=== PATIENT | female | born 1940 | race Caucasian/White ===

== ENCOUNTER 2019-02-19 12:23 | Outpatient (CLI) | payer MEDICARE | END 2019-02-19 23:59 | disposition home or self-care (01) | LOC: CFH 12:23 → EDSTATUS 13:00 → CFH 23:59 | PROVIDERS: ATTEND Internal Medicine Cardiovascular Disease | DX: I08.0 Rheumatic disorders of both mitral and aortic valves (principal) | CPT/HCPCS: 93306 ==

== ENCOUNTER 2019-09-21 09:35 | Outpatient (CLI) | payer MEDICARE ==
[~2019-09-21] VITALS: Ht 157.5 cm; Wt 73.2 kg
[2019-09-21] MEDS ORDERED: FENTANYL PF 100 MCG/2ML ONE (12:42)
[2019-09-21] MEDS ORDERED: MIDAZOLAM 1 MG/ML, 5ML ONE (12:42)
[2019-09-21] MEDS ORDERED: HEPARIN 1,000 UNITS/ML, 10ML ONE (12:43)
[2019-09-21] MEDS ORDERED: LIDOCAINE-MPF 1%, 5ML ONE (12:43)
[2019-09-21] MEDS ORDERED: BIVALIRUDIN 250 MG ONE (12:43)
[2019-09-21] MEDS ORDERED: VERAPAMIL 2.5 MG/ML, 2ML ONE (12:43)
[2019-09-21] MEDS ORDERED: TICAGRELOR 90 MG TABLET ONE (12:43)
[2019-09-21] MEDS ORDERED: SODIUM CHLORIDE 0.9% 1,000 ML IV SCH (13:10)
[2019-09-21] MEDS ORDERED: NYST15PO9 TP (13:24)
[2019-09-21] MEDS ORDERED: APIX2.5T PO (13:24)
[2019-09-21] MEDS ORDERED: SODI650T PO (13:24)
[2019-09-21] MEDS ORDERED: PEPCID COMPLETE PO (13:24)
[2019-09-21] MEDS ORDERED: CHOL200052 PO (13:24)
[2019-09-21] MEDS ORDERED: PLEASE ENTER HEIGHT AND WEIGHT MC SCH ×2 (13:30)
[2019-09-21 13:50] LABS: BASOPHILS # (AUTO) 0.03 x10^3/uL (0-0.1); BASOPHILS % (AUTO) 1 % (0-1); EOSINOPHILS # (AUTO) 0.12 x10^3/uL (0-0.4); EOSINOPHILS % (AUTO) 2 % (1-7); LYMPHOCYTES # (AUTO) 3.03 x10^3/uL (1-3.4); LYMPHOCYTES % (AUTO) 41 % (22-44); MD NO; MEAN CORPUSCULAR HEMOGLOBIN 30.6 pg (27.0-34.8); MEAN CORPUSCULAR VOLUME 92.7 fL (80-100); MEAN PLATELET VOLUME 7.1 fL (7.4-10.4); MONOCYTES # (AUTO) 0.62 x10^3/uL (0.2-0.8); MONOCYTES % (AUTO) 8 % (2-9); NEUTROPHILS # (AUTO) 3.58 x10^3/uL (1.8-6.8); NEUTROPHILS % (AUTO) 49 % (42-75); PLATELET COUNT 168 x10^3/uL (130-400); RED BLOOD COUNT 4.45 x10^6/uL (3.82-5.3); RED CELL DISTRIBUTION WIDTH 14.9 % (9.6-15.2)
[2019-09-21 13:58] LABS: ANION GAP 8 mmol/L (5-15); CALCIUM 9.5 mg/dL (8.5-10.1); CHLORIDE 109 mmol/L (98-107)
[2019-09-21] MEDS ORDERED: SODIUM CHLORIDE 0.9% 500 ML IV SCH (15:00)
== END 2019-09-21 23:59 | disposition home or self-care (01) ==
LOC: CVU 09:35 → RAD 23:59
PROVIDERS: ATTEND Internal Medicine Cardiovascular Disease
DX: Z01.810 Encounter for preprocedural cardiovascular examination (principal); I25.10 Atherosclerotic heart disease of native coronary artery without angina pectoris; I65.21 Occlusion and stenosis of right carotid artery; I35.0 Nonrheumatic aortic (valve) stenosis; I12.9 Hypertensive chronic kidney disease with stage 1 through stage 4 chronic kidney disease, or unspecified chronic kidney disease; N18.4 Chronic kidney disease, stage 4 (severe); E04.1 Nontoxic single thyroid nodule; Z79.01 Long term (current) use of anticoagulants; Z79.899 Other long term (current) drug therapy; Z86.718 Personal history of other venous thrombosis and embolism; Z86.711 Personal history of pulmonary embolism; Z88.0 Allergy status to penicillin; Z88.8 Allergy status to other drugs, medicaments and biological substances; Z98.890 Other specified postprocedural states
CPT/HCPCS: 36415; 71250; 74176; 80048; 85025; 93454; 93880; 99156; C1769; C1894; J0583; J1644; J2250; J3010; J7030; Q9967

== ENCOUNTER → 2019-11-02 | Outpatient (CLI) | payer MEDICARE ==
[2019-09-29 14:45] VITALS: BP 128/73
[~2019-11-02] MED LIST: APIX2.5T PO; CHOL200052 PO; NYST15PO9 TP; PEPCID COMPLETE PO; SODI650T PO
== END | disposition home or self-care (01) ==
LOC: CFH 11:52
PROVIDERS: ATTEND Internal Medicine Cardiovascular Disease
DX: I35.0 Nonrheumatic aortic (valve) stenosis (principal); R06.02 Shortness of breath; I65.29 Occlusion and stenosis of unspecified carotid artery
CPT/HCPCS: 93306

== ENCOUNTER → 2020-09-26 | Outpatient (CLI) | payer MEDICARE ==
[~2020-09-26] MED LIST changes: +Sulfameth./Trimethoprim Ds PO
== END | disposition home or self-care (01) ==
LOC: CFH 09:44
PROVIDERS: ATTEND Internal Medicine Cardiovascular Disease
DX: Z01.810 Encounter for preprocedural cardiovascular examination (principal); I65.29 Occlusion and stenosis of unspecified carotid artery; I12.9 Hypertensive chronic kidney disease with stage 1 through stage 4 chronic kidney disease, or unspecified chronic kidney disease; N18.4 Chronic kidney disease, stage 4 (severe); I34.8 Other nonrheumatic mitral valve disorders; Z95.4 Presence of other heart-valve replacement; Z95.0 Presence of cardiac pacemaker
CPT/HCPCS: 93306